=== PATIENT | female | born 1970 ===

== ENCOUNTER 2020-05-26 15:31 | Emergency (ER) | payer OTHER ==
[~2020-05-26] VITALS: Ht 165.1 cm; Wt 68.0 kg
[2020-05-26] MEDS ORDERED: AMLODIPINE-OLM1 EAC2 (15:59)
[2020-05-26] MEDS ORDERED: HYDROCHLOROTHIA25 MG (16:00)
[2020-05-26] MEDS ORDERED: ULTRAM50 MG (16:01)
[2020-05-26] MEDS ORDERED: KETOROLAC TROMET5 M1 (16:01)
== END 2020-05-26 19:11 | disposition home or self-care (01) ==
LOC: ER 15:31
DX: M25.562 Pain in left knee (principal)